=== PATIENT | female | born 1995 | race Caucasian/White ===

== ENCOUNTER 2017-11-01 13:49 | Emergency (ER) | payer BC ==
[~2017-11-01] VITALS: Ht 170.2 cm; Wt 117.9 kg
[~2017-11-01 13:49] MED LIST: ALBUTEROL INHAL17 GM IH; ALLEGRA30 MG; AZITHROMYCIN 2250 MG PO; BUTALB-APAP-CA1 EACH PO; FLONASE 0.05%50 MCG; FLOVENT HFA 1110 MCG; HYDROCODON-ACE1 EAC7 PO; NAPROSYN500 MG PO; PATANASE30.5 GM; PREDNISONE 20 M20 MG PO; PRINIVIL20 M1; PROPRANOLOL 1010 MG PO; SINGULAIR; TESSALON PERLE100 MG PO; ZOFRAN ODT4 MG PO
[2017-11-01] MEDS ORDERED: PROAIR HFA8.5 GM (14:00)
[2017-11-01] MEDS ORDERED: CARVEDILOL3.125 MG PO (14:00)
[2017-11-01 14:18] VITALS: BP 173/90
--- NOTE | 2017-11-02 10:26 | EKG ---
[place] [address] ELECTROCARDIOGRAM REPORT Name: TALIB TOVAR [id number] Admission: 11/01/17 Attend Phys: Discharge: 11/01/17 Date of : [birth year] Report #: [id number] THIS REPORT FOR: //name// [facility] ED Test Date: 2017-11-01 Test Time: 13:56:06 Pat Name: TALIB TOVAR Department: Room: Gender: F Supervisor Frame Assembly: SYLVIA : 1995 Requested By: Michael Bland Order Number: [id number] MD: Alex Knott Measurements Intervals [place] Rate: 100 P: 40 WA: 127 QRS: 42 QRSD: 102 T: -24 QT: 341 QTc: 440 Interpretive Statements Sinus tachycardia Borderline T abnormalities, inferior leads Compared to ECG 03/25/2017 17:35:55 rate slowed Electronically Signed On 11-02-2017 10:25:55 CDT by Alex Knott [email or web address] <ELECTRONICALLY SIGNED> By: Alex Knott MD, [facility] 11/02/17 1025 1356 1356 Alex Knott MD, FACC /EPI
== END 2017-11-01 14:19 | disposition home or self-care (01) ==
LOC: M.ERS 13:49
DX: R07.89 Other chest pain (principal); I10 Essential (primary) hypertension; J45.909 Unspecified asthma, uncomplicated; M41.9 Scoliosis, unspecified; Z88.6 Allergy status to analgesic agent

== ENCOUNTER 2018-01-11 13:15 | Emergency (ER) | payer BC ==
[~2018-01-11] VITALS: Ht 170.2 cm; Wt 117.9 kg
[~2018-01-11 13:15] MED LIST changes: +CARVEDILOL3.125 MG PO; +PROAIR HFA8.5 GM
[2018-01-11] MEDS ORDERED: VENTOLIN HFA 1818 GM INH (13:32)
[2018-01-11 13:58] LABS: URINE BILIRUBIN NEGATIVE (Negative); URINE BLOOD NEGATIVE (Negative); URINE CLARITY CLEAR; URINE COLOR YELLOW; URINE GLUCOSE-RANDOM NEGATIVE (Negative); URINE KETONES NEGATIVE (Negative); URINE LEUKOCYTES-REFLEX TRACE (Negative); URINE NITRITE-REFLEX NEGATIVE (Negative); URINE PROTEIN NEGATIVE (Negative); URINE SPECIFIC GRAVITY 1.015 (1.005-1.030); URINE UROBILINOGEN 0.2 E.U./dl (0.2-1.0)
[2018-01-11 14:09] LABS: ABSOLUTE BASOPHILS 0.1 thou/uL (0.0-0.2); ABSOLUTE EOSINOPHILS 0.2 thou/uL (0.0-0.7); ABSOLUTE LYMPHOCYTES 1.6 thou/uL (0.8-5.3); ABSOLUTE MONOCYTES 0.7 thou/uL (0.0-1.2); ABSOLUTE NEUTROPHILS 8.9 thou/uL (1.6-8.1); BASOPHILS 0.9 %; EOSINOPHILS 2.1 %; HEMATOCRIT 43.6 % (37.0-47.0); HEMOGLOBIN 14.4 gm/dL (12.0-15.0); LYMPHOCYTES 13.8 %; MCH 27.8 pg (26.0-34.0); MCV 84.2 fL (80.0-100.0); MONOCYTES 6.2 %; MPV 7.7 fl. (7.2-11.1); NUCLEATED RBCS 0 /100WBC; PLATELET COUNT* 339 thou/uL (150-400); RBC 5.18 mil/uL (4.20-5.00); RDW-CV 13.8 % (10.5-14.5); WBC 11.5 thou/uL (4.0-11.0)
[2018-01-11 14:12] LABS: BACTERIA-REFLEX 1-9 Few /HPF (None Seen); CASTS None Seen /LPF (None Seen); CRYSTALS None Seen /LPF (None Seen); SQUAMOUS 4-10 Moderate /LPF (0-3); URINE RBC 0-2 Rare /HPF (0-2); URINE WBC-REFLEX 0-5 Rare /HPF (0-5)
[2018-01-11 14:15] LABS: APTT 32.9 Seconds (25.0-31.3); PROTIME 10.2 Seconds (9.20-11.50)
[2018-01-11 14:16] LABS: ANION GAP 10 mmol/L (7-16); BUN 12 mg/dL (7-18); CALCIUM 10.4 mg/dL (8.5-10.1); CHLORIDE 104 mmol/L (98-107); CO2 24 mmol/L (21-32); CREATININE 0.7 mg/dL (0.6-1.3); GLUCOSE 144 mg/dL (70-99); POTASSIUM 3.7 mmol/L (3.5-5.1); SODIUM 138 mmol/L (136-145)
[2018-01-11 14:33] LABS: ALBUMIN 4.2 g/dL (3.4-5.0); ALKALINE PHOSPHATASE 54 U/L (46-116); CK-MB MASS 0.6 ng/mL (<0.5-3.6); NT-PRO BRAIN NAT PEPTIDE < 5 pg/mL (<300); SGOT 13 U/L (15-37); SGPT 24 U/L (30-65); TOTAL BILIRUBIN 1.1 mg/dL (<0.1-1.0); TOTAL PROTEIN 7.8 g/dL (6.4-8.2); TROPONIN-I LEVEL <0.06 ng/mL (<0.06)
--- NOTE | 2018-01-11 14:57 | EKG ---
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: Jaspal SHORT : 1995 Requested By: Michael Bland Order Number: [id number] MD: Alex Knott Measurements Intervals [place] Rate: 105 P: 43 IA: 116 QRS: 40 QRSD: 92 T: -12 QT: 329 QTc: 435 Interpretive Statements Sinus tachycardia Borderline T abnormalities, diffuse leads Baseline wander in lead(s) V3,V4,V5 Compared to ECG 11/01/2017 13:56:06 No significant changes Electronically Signed On 01-11-2018 14:57:08 CDT by Alex Knott [email or web address] <ELECTRONICALLY SIGNED> By: Alex Knott MD, [facility] 01/11/18 [facility]7 1329 1329 Alex Knott MD, [facility] /EPI
[2018-01-11 15:18] VITALS: BP 130/90
== END 2018-01-11 15:19 | disposition home or self-care (01) ==
LOC: M.ERS 13:15
PROVIDERS: Family Medicine
DX: R07.89 Other chest pain (principal); I10 Essential (primary) hypertension; J45.909 Unspecified asthma, uncomplicated; M41.9 Scoliosis, unspecified; Z88.5 Allergy status to narcotic agent

== ENCOUNTER 2018-10-15 11:19 | Emergency (ER) | payer BC ==
[~2018-10-15] VITALS: Ht 167.6 cm; Wt 119.8 kg
[~2018-10-15 11:19] MED LIST changes: +VENTOLIN HFA 1818 GM INH
[2018-10-15] MEDS ORDERED: INDOMETHACIN 5050 M1 (11:27)
[2018-10-15 12:07] LABS: ABSOLUTE BASOPHILS 0.1 thou/uL (0.0-0.2); ABSOLUTE EOSINOPHILS 0.2 thou/uL (0.0-0.7); ABSOLUTE MONOCYTES 0.6 thou/uL (0.0-1.2); ABSOLUTE NEUTROPHILS 5.1 thou/uL (1.6-8.1); BASOPHILS 1.1 %; EOSINOPHILS 2.6 %; HEMATOCRIT 41.8 % (37.0-47.0); HEMOGLOBIN 13.9 gm/dL (12.0-15.0); LYMPHOCYTES 24.7 %; MCH 27.7 pg (26.0-34.0); MCHC 33.3 g/dL (28.0-37.0); MCV 83.3 fL (80.0-100.0); MONOCYTES 7.3 %; NUCLEATED RBCS 0 /100WBC; PLATELET COUNT* 332 thou/uL (150-400); POLYS 64.3 %; RBC 5.02 mil/uL (4.20-5.00); RDW-CV 13.7 % (10.5-14.5)
[2018-10-15 12:13] LABS: ANION GAP 11 mmol/L (7-16); BUN 9 mg/dL (7-18); CALCIUM 10.4 mg/dL (8.5-10.1); CHLORIDE 106 mmol/L (98-107); CO2 24 mmol/L (21-32); CREATININE 0.7 mg/dL (0.6-1.3); GLUCOSE 99 mg/dL (70-99); POTASSIUM 4.1 mmol/L (3.5-5.1); SODIUM 141 mmol/L (136-145)
[2018-10-15 12:22] LABS: ALBUMIN 4.2 g/dL (3.4-5.0); ALKALINE PHOSPHATASE 53 U/L (46-116); LIPASE 84 U/L (73-393); MAGNESIUM 2.1 mg/dL (1.8-2.4); SGOT 13 U/L (15-37); SGPT 29 U/L (30-65); TOTAL PROTEIN 7.6 g/dL (6.4-8.2); TROPONIN-I LEVEL <0.06 ng/mL (<0.06)
[2018-10-15] MEDS ORDERED: FLEXERIL PO ×6 (13:11→13:34)
[2018-10-15] MEDS ORDERED: NORCO 5-325 TA1 EAC1 PO ×5 (13:11→13:29)
[2018-10-15 13:37] VITALS: BP 119/71
--- NOTE | 2018-10-15 16:00 | EKG ---
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 10/15/18 1600 1123 1123 Alex Knott MD, [facility] /EPI
== END 2018-10-15 13:37 | disposition home or self-care (01) ==
LOC: M.ERS 11:19
PROVIDERS: Emergency Medicine Emergency Medical Services
DX: M94.0 Chondrocostal junction syndrome [Tietze] (principal); I10 Essential (primary) hypertension; J45.909 Unspecified asthma, uncomplicated; M41.9 Scoliosis, unspecified; Z90.89 Acquired absence of other organs; Z88.5 Allergy status to narcotic agent

== ENCOUNTER 2019-06-10 15:57 | Emergency (ER) | payer BC ==
[~2019-06-10] VITALS: Ht 170.2 cm
[~2019-06-10 15:57] MED LIST changes: +FLEXERIL PO; +INDOMETHACIN 5050 M1; +NORCO 5-325 TA1 EAC1 PO
[2019-06-10] MEDS ORDERED: BLISOVI 24 FE1 EACH PO (16:17)
[2019-06-10 17:28] LABS: ABSOLUTE BASOPHILS 0.1 thou/uL (0.0-0.2); ABSOLUTE EOSINOPHILS 0.3 thou/uL (0.0-0.7); ABSOLUTE LYMPHOCYTES 3.3 thou/uL (0.8-5.3); ABSOLUTE MONOCYTES 0.7 thou/uL (0.0-1.2); ABSOLUTE NEUTROPHILS 6.5 thou/uL (1.6-8.1); BASOPHILS 0.7 %; EOSINOPHILS 2.4 %; HEMATOCRIT 46.2 % (37.0-47.0); HEMOGLOBIN 14.7 gm/dL (12.0-15.0); LYMPHOCYTES 30.4 %; MCH 28.6 pg (26.0-34.0); MCHC 31.8 g/dL (28.0-37.0); MONOCYTES 6.3 %; MPV 7.6 fl. (7.2-11.1); NUCLEATED RBCS 0 /100WBC; PLATELET COUNT* 338 thou/uL (150-400); POLYS 60.2 %; RBC 5.13 mil/uL (4.20-5.00); RDW-CV 15.3 % (10.5-14.5); WBC 10.7 thou/uL (4.0-11.0)
[2019-06-10 17:36] LABS: CALCIUM 10.5 mg/dL (8.5-10.1); CREATININE 0.6 mg/dL (0.6-1.3); POTASSIUM 4.4 mmol/L (3.5-5.1)
[2019-06-10 17:41] LABS: ALBUMIN 4.3 g/dL (3.4-5.0); TOTAL BILIRUBIN 1.1 mg/dL (<0.1-1.0); TOTAL PROTEIN 8.1 g/dL (6.4-8.2)
[2019-06-10 19:06] LABS: URINE BILIRUBIN NEGATIVE (Negative); URINE BLOOD 1+ (Negative); URINE CLARITY CLEAR; URINE COLOR YELLOW; URINE GLUCOSE-RANDOM NEGATIVE (Negative); URINE KETONES NEGATIVE (Negative); URINE LEUKOCYTES-REFLEX NEGATIVE (Negative); URINE NITRITE-REFLEX NEGATIVE (Negative); URINE PROTEIN NEGATIVE (Negative); URINE UROBILINOGEN 0.2 E.U./dl (0.2-1.0)
[2019-06-10 19:18] LABS: SQUAMOUS >10 Many /LPF (0-3)
[2019-06-10 19:19] LABS: AMORPHOUS URATES Few /LPF (None Seen); BACTERIA-REFLEX None Seen /HPF (None Seen); CASTS None Seen /LPF (None Seen); URINE RBC 3-10 Few /HPF (0-2); URINE WBC-REFLEX None Seen /HPF (0-5)
[2019-06-10 19:42] VITALS: BP 168/84
--- NOTE | 2019-06-13 16:22 | EKG ---
[place] [address] ELECTROCARDIOGRAM REPORT Name: TALIB TOVAR Room: [facility]#: [id number] Admission: 06/10/19 Attend Phys: Discharge: 06/10/19 Date of : [birth year] Date of Service: 06/10/19 1616 Report #: [id number] THIS REPORT FOR: //name// [facility] ED Test Date: 2019-06-10 Test Time: 16:16:05 Pat Name: TALIB TOVAR Department: Room: Gender: F Gambreler: : 1995 Requested By: Marilyn Meier Order Number: [id number] MD: Bang Hwang Measurements Intervals [place] Rate: 87 P: 37 [place]: 131 QRS: 22 QRSD: 92 T: 2 QT: 359 QTc: 432 Interpretive Statements Sinus rhythm Baseline wander in lead(s) V4,V5 Compared to ECG 10/15/2018 11:23:02 T-wave abnormality no longer present Electronically Signed On 06-13-2019 16:21:18 CDT by Bang Hwang [email or web address] <ELECTRONICALLY SIGNED> By: Bang Hwang MD, FACC 06/13/19 1621 1616 1616 Bang Hwang MD, [facility] /EPI
== END 2019-06-10 19:45 | disposition home or self-care (01) ==
LOC: M.ERS 15:57
PROVIDERS: Nurse Practitioner Family
DX: R42 Dizziness and giddiness (principal); R07.89 Other chest pain; I10 Essential (primary) hypertension; J45.909 Unspecified asthma, uncomplicated; Z88.5 Allergy status to narcotic agent; Z90.89 Acquired absence of other organs; M41.9 Scoliosis, unspecified

== ENCOUNTER 2020-04-05 12:00 | Emergency (ER) | payer BC ==
[~2020-04-05] VITALS: Ht 167.6 cm; Wt 108.9 kg
[~2020-04-05 12:00] MED LIST changes: +BLISOVI 24 FE1 EACH PO
[2020-04-05] MEDS ORDERED: BENICAR20 MG PO (12:07)
[2020-04-05 12:31] LABS: ABSOLUTE BASOPHILS 0.1 thou/uL (0.0-0.2); ABSOLUTE EOSINOPHILS 0.2 thou/uL (0.0-0.7); ABSOLUTE LYMPHOCYTES 2.3 thou/uL (0.8-5.3); ABSOLUTE MONOCYTES 0.6 thou/uL (0.0-1.2); ABSOLUTE NEUTROPHILS 4.2 thou/uL (1.6-8.1); BASOPHILS 1.3 %; EOSINOPHILS 2.7 %; HEMATOCRIT 43.3 % (37.0-47.0); HEMOGLOBIN 14.3 gm/dL (12.0-15.0); LYMPHOCYTES 30.8 %; MCH 28.6 pg (26.0-34.0); MCHC 33.1 g/dL (28.0-37.0); MCV 86.5 fL (80.0-100.0); MONOCYTES 8.2 %; MPV 7.3 fl. (7.2-11.1); NUCLEATED RBCS 0 /100WBC; PLATELET COUNT* 351 thou/uL (150-400); WBC 7.4 thou/uL (4.0-11.0)
[2020-04-05 12:41] LABS: CALCIUM 10.4 mg/dL (8.5-10.1); CREATININE 0.8 mg/dL (0.6-1.3)
[2020-04-05 12:51] LABS: ALBUMIN 4.4 g/dL (3.4-5.0); MAGNESIUM 2.2 mg/dL (1.8-2.4); TOTAL BILIRUBIN 0.5 mg/dL (<0.1-1.0); TOTAL PROTEIN 7.9 g/dL (6.4-8.2)
[2020-04-05] MEDS ORDERED: IBUPROFEN 800800 M1 PO (13:35)
[2020-04-05] MEDS ORDERED: FLEXERIL PO (13:35)
[2020-04-05 13:50] VITALS: BP 149/92
--- NOTE | 2020-04-05 16:28 | EKG ---
[place] [address] ELECTROCARDIOGRAM REPORT Name: TALIB TOVAR Room: [facility]#: [id number] Admission: 04/05/20 Attend Phys: Discharge: 04/05/20 Date of : [birth year] Date of Service: 04/05/20 1209 Report #: [id number] THIS REPORT FOR: //name// 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: [facility] : 1995 Requested By: Federico Fontenot Order Number: [id number] MD: Bang Hwang Measurements Intervals [place] Rate: 118 P: 49 MA: 127 QRS: 42 QRSD: 100 T: -43 QT: 333 QTc: 467 Interpretive Statements Sinus tachycardia Nonspecific ST segment depression Compared to ECG 06/10/2019 16:16:05 Sinus rhythm no longer present Electronically Signed On 04-05-2020 16:28:12 DOUBLE ENDING MACHINE OPERATOR by Bang Hwang [email or web address] <ELECTRONICALLY SIGNED> By: Bang Hwang MD, FACC 04/05/20 1628 1209 1209 Bang Hwang MD, FACC /EPI
== END 2020-04-05 13:52 | disposition home or self-care (01) ==
LOC: M.ERS 12:00
PROVIDERS: Emergency Medicine Emergency Medical Services
DX: R09.1 Pleurisy (principal); I10 Essential (primary) hypertension; J45.909 Unspecified asthma, uncomplicated; Z90.89 Acquired absence of other organs; Z96.22 Myringotomy tube(s) status; Z79.899 Other long term (current) drug therapy; Z88.5 Allergy status to narcotic agent

== ENCOUNTER 2020-05-23 16:18 | Emergency (ER) | payer BC ==
[~2020-05-23] VITALS: Ht 165.1 cm; Wt 99.8 kg
[~2020-05-23 16:18] MED LIST changes: +BENICAR20 MG PO; +IBUPROFEN 800800 M1 PO
[2020-05-23] MEDS ORDERED: BENICAR40 MG PO (16:34)
[2020-05-23] MEDS ORDERED: VENTOLIN HFA 1818 GM INH (16:35)
[2020-05-23] MEDS ORDERED: SINGULAIR 4 MG C4 M1 PO (16:35)
[2020-05-23] MEDS ORDERED: BIRTH CONTROL (16:35)
[2020-05-23 17:08] LABS: ABSOLUTE BASOPHILS 0.1 thou/uL (0.0-0.2); ABSOLUTE EOSINOPHILS 0.2 thou/uL (0.0-0.7); ABSOLUTE LYMPHOCYTES 2.5 thou/uL (0.8-5.3); ABSOLUTE MONOCYTES 0.7 thou/uL (0.0-1.2); ABSOLUTE NEUTROPHILS 5.2 thou/uL (1.6-8.1); BASOPHILS 0.7 %; EOSINOPHILS 2.1 %; HEMATOCRIT 42.1 % (37.0-47.0); HEMOGLOBIN 14.1 gm/dL (12.0-15.0); LYMPHOCYTES 29.4 %; MCH 28.8 pg (26.0-34.0); MCHC 33.5 g/dL (28.0-37.0); MONOCYTES 7.7 %; MPV 7.4 fl. (7.2-11.1); NUCLEATED RBCS 0 /100WBC; PLATELET COUNT* 314 thou/uL (150-400); POLYS 60.1 %; RDW-CV 12.8 % (10.5-14.5); WBC 8.7 thou/uL (4.0-11.0)
[2020-05-23 17:17] LABS: ANION GAP 14 mmol/L (7-16); BUN 12 mg/dL (7-18); CALCIUM 10.2 mg/dL (8.5-10.1); CHLORIDE 101 mmol/L (98-107); CO2 22 mmol/L (21-32); CREATININE 0.8 mg/dL (0.6-1.3); GLUCOSE 103 mg/dL (70-99); POTASSIUM 3.5 mmol/L (3.5-5.1); SODIUM 137 mmol/L (136-145)
[2020-05-23 17:28] LABS: ALBUMIN 4.3 g/dL (3.4-5.0); ALKALINE PHOSPHATASE 42 U/L (46-116); NT-PRO BRAIN NAT PEPTIDE < 5 pg/mL (<300); SGOT 22 U/L (15-37); SGPT 43 U/L (30-65); TOTAL BILIRUBIN 0.8 mg/dL (<0.1-1.0); TOTAL PROTEIN 7.2 g/dL (6.4-8.2)
[2020-05-23] MEDS ORDERED: TRANSDERM-SCOP1 EACH TRANSDERM (17:38)
[2020-05-23] MEDS ORDERED: MECLIZINE HCL25 MG PO (17:38)
[2020-05-23 18:01] VITALS: BP 163/95
--- NOTE | 2020-05-24 10:13 | EKG ---
[place] [address] ELECTROCARDIOGRAM REPORT Name: TALIB TOVAR Room: [facility]#: [id number] Admission: 05/23/20 Attend Phys: Discharge: 05/23/20 Date of : [birth year] Date of Service: 05/23/20 1645 Report #: [id number] THIS REPORT FOR: //name// [facility] ED Test Date: 2020-05-23 Test Time: 16:45:13 Pat Name: TALIB TOVAR Department: Room: Gender: F Manager Intranet: gabriel : 1995 Requested By: Mckenna Handley Order Number: [id number] MD: Alex Knott Measurements Intervals [place] Rate: 102 P: 5 SD: 156 QRS: 36 QRSD: 99 T: -26 QT: 336 QTc: 438 Interpretive Statements Sinus tachycardia Borderline T abnormalities, inferior leads Compared to ECG 04/05/2020 12:09:53 no change Electronically Signed On 05-24-2020 10:13:15 STEAM TRAP WORKER by Alex Knott [email or web address] <ELECTRONICALLY SIGNED> By: Alex Knott MD, [facility] 05/24/20 1013 1645 1645 Alex Knott MD, [facility] /EPI
== END 2020-05-23 18:02 | disposition home or self-care (01) ==
LOC: M.ERS 16:18
PROVIDERS: Nurse Practitioner Family
DX: H81.10 Benign paroxysmal vertigo, unspecified ear (principal); I10 Essential (primary) hypertension; J45.909 Unspecified asthma, uncomplicated; M41.9 Scoliosis, unspecified; Z88.5 Allergy status to narcotic agent; Z90.89 Acquired absence of other organs

== ENCOUNTER 2020-06-30 10:02 | Emergency (ER) | payer BC ==
[~2020-06-30] VITALS: Ht 170.2 cm; Wt 108.9 kg
[~2020-06-30 10:02] MED LIST changes: +BENICAR40 MG PO; +BIRTH CONTROL; +MECLIZINE HCL25 MG PO; +SINGULAIR 4 MG C4 M1 PO; +TRANSDERM-SCOP1 EACH TRANSDERM
[2020-06-30] MEDS ORDERED: MICARDIS40 MG PO (10:14)
[2020-06-30 11:04] LABS: CALCIUM 10.3 mg/dL (8.5-10.1); CREATININE 0.7 mg/dL (0.6-1.3); POTASSIUM 3.8 mmol/L (3.5-5.1)
[2020-06-30 11:09] LABS: TOTAL BILIRUBIN 0.8 mg/dL (<0.1-1.0); TOTAL PROTEIN 7.6 g/dL (6.4-8.2)
[2020-06-30 11:48] LABS: ABSOLUTE BASOPHILS 0.1 thou/uL (0.0-0.2); ABSOLUTE EOSINOPHILS 0.1 thou/uL (0.0-0.7); ABSOLUTE LYMPHOCYTES 1.9 thou/uL (0.8-5.3); ABSOLUTE MONOCYTES 0.5 thou/uL (0.0-1.2); ABSOLUTE NEUTROPHILS 4.5 thou/uL (1.6-8.1); BASOPHILS 1.2 %; HEMATOCRIT 40.2 % (37.0-47.0); HEMOGLOBIN 13.5 gm/dL (12.0-15.0); LYMPHOCYTES 26.5 %; MCH 28.7 pg (26.0-34.0); MCHC 33.5 g/dL (28.0-37.0); MCV 85.8 fL (80.0-100.0); MONOCYTES 7.4 %; MPV 7.1 fl. (7.2-11.1); NUCLEATED RBCS 0 /100WBC; PLATELET COUNT* 305 thou/uL (150-400); POLYS 62.9 %; RBC 4.68 mil/uL (4.20-5.00); RDW-CV 12.8 % (10.5-14.5); WBC 7.2 thou/uL (4.0-11.0)
[2020-06-30] MEDS ORDERED: FLEXERIL PO (11:53)
[2020-06-30 12:00] VITALS: BP 143/75
--- NOTE | 2020-07-02 09:35 | EKG ---
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: CCD : 1995 Requested By: Federico Fontenot Order Number: [id number] MD: Alex Knott Measurements Intervals [place] Rate: 92 P: 31 FL: 128 QRS: 28 QRSD: 94 T: -5 QT: 359 QTc: 445 Interpretive Statements Sinus rhythm Borderline T abnormalities, inferior leads Compared to ECG 05/23/2020 16:45:13 Sinus tachycardia no longer present T-wave abnormality still present Electronically Signed On 07-02-2020 9:35:50 CDT by Alex Knott [email or web address] <ELECTRONICALLY SIGNED> By: Alex Knott MD, FAC 07/02/20 0935 1033 1033 Alex Knott MD, [facility] /EPI
== END 2020-06-30 12:00 | disposition home or self-care (01) ==
LOC: M.ERS 10:02
PROVIDERS: Emergency Medicine Emergency Medical Services
DX: R07.89 Other chest pain (principal); J45.909 Unspecified asthma, uncomplicated; I10 Essential (primary) hypertension; M41.9 Scoliosis, unspecified; Z90.89 Acquired absence of other organs; Z88.5 Allergy status to narcotic agent

== ENCOUNTER 2020-11-05 11:31 | Emergency (ER) | payer BC ==
[~2020-11-05] VITALS: Ht 170.2 cm; Wt 108.9 kg
[~2020-11-05 11:31] MED LIST changes: +MICARDIS40 MG PO
[2020-11-05 12:00] VITALS: BP 160/108
[2020-11-05] MEDS ORDERED: LORATIDINE 10 M10 M1 PO (12:03)
[2020-11-05 12:36] LABS: ABSOLUTE BASOPHILS 0.1 thou/uL (0.0-0.2); ABSOLUTE EOSINOPHILS 0.2 thou/uL (0.0-0.7); ABSOLUTE LYMPHOCYTES 2.5 thou/uL (0.8-5.3); ABSOLUTE MONOCYTES 0.6 thou/uL (0.0-1.2); ABSOLUTE NEUTROPHILS 6.7 thou/uL (1.6-8.1); BASOPHILS 0.8 %; EOSINOPHILS 1.8 %; HEMATOCRIT 41.9 % (37.0-47.0); HEMOGLOBIN 14.2 gm/dL (12.0-15.0); LYMPHOCYTES 24.9 %; MCHC 33.9 g/dL (28.0-37.0); MCV 85.6 fL (80.0-100.0); MONOCYTES 5.8 %; MPV 7.2 fl. (7.2-11.1); NUCLEATED RBCS 0 /100WBC; PLATELET COUNT* 348 thou/uL (150-400); POLYS 66.7 %; RDW-CV 12.8 % (10.5-14.5); WBC 10.1 thou/uL (4.0-11.0)
[2020-11-05 12:44] LABS: CALCIUM 9.7 mg/dL (8.5-10.1); CREATININE 0.7 mg/dL (0.6-1.3); POTASSIUM 3.9 mmol/L (3.5-5.1)
[2020-11-05 12:48] LABS: ALBUMIN 4.2 g/dL (3.4-5.0); TOTAL BILIRUBIN 0.7 mg/dL (<0.1-1.0); TOTAL PROTEIN 7.6 g/dL (6.4-8.2)
[2020-11-05] MEDS ORDERED: HYDROCODON-ACE1 EAC7 PO (14:20)
[2020-11-05] MEDS ORDERED: MOTION SICKNESS25 MG PO (14:20)
--- NOTE | 2020-11-05 16:03 | EKG ---
[place] [address] ELECTROCARDIOGRAM REPORT Name: TALIB TOVAR Room: 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 Analyst: : 1995 Requested By: Federico Fontenot Order Number: [id number] MD: Alex Knott Measurements Intervals [place] Rate: 93 P: 12 ND: 108 QRS: 31 QRSD: 94 T: -16 QT: 343 QTc: 427 Interpretive Statements Sinus rhythm Short [place] interval Borderline T abnormalities, inferior leads Compared to ECG 06/30/2020 10:33:24 T-wave abnormality still present Electronically Signed On 11-05-2020 16:03:39 CDT by Alex Knott [email or web address] <ELECTRONICALLY SIGNED> By: Alex Knott MD, [facility] 11/05/20 1603 1206 1206 Alex Knott MD, [facility] /EPI
== END 2020-11-05 14:40 | disposition home or self-care (01) ==
LOC: M.ERS 11:31
PROVIDERS: Emergency Medicine Emergency Medical Services
DX: M94.0 Chondrocostal junction syndrome [Tietze] (principal); H81.10 Benign paroxysmal vertigo, unspecified ear; I10 Essential (primary) hypertension; J45.909 Unspecified asthma, uncomplicated; M41.9 Scoliosis, unspecified; Z90.89 Acquired absence of other organs; Z88.5 Allergy status to narcotic agent

== ENCOUNTER 2021-04-02 09:33 | Emergency (ER) | payer BC ==
[~2021-04-02] VITALS: Ht 170.2 cm; Wt 113.4 kg
[~2021-04-02 09:33] MED LIST changes: +LORATIDINE 10 M10 M1 PO; +MOTION SICKNESS25 MG PO
[2021-04-02] MEDS ORDERED: LIPITOR10 MG PO (09:43)
[2021-04-02] MEDS ORDERED: SPIRONOLACTONE25 MG PO (09:43)
[2021-04-02 13:04] LABS: ABSOLUTE BASOPHILS 0.1 thou/uL (0.0-0.2); ABSOLUTE EOSINOPHILS 0.1 thou/uL (0.0-0.7); ABSOLUTE LYMPHOCYTES 1.7 thou/uL (0.8-5.3); ABSOLUTE MONOCYTES 0.4 thou/uL (0.0-1.2); BASOPHILS 0.7 %; EOSINOPHILS 1.3 %; HEMATOCRIT 40.5 % (37.0-47.0); HEMOGLOBIN 13.6 gm/dL (12.0-15.0); LYMPHOCYTES 20.1 %; MCH 28.4 pg (26.0-34.0); MCHC 33.6 g/dL (28.0-37.0); MCV 84.4 fL (80.0-100.0); MONOCYTES 5.4 %; MPV 7.4 fl. (7.2-11.1); NUCLEATED RBCS 0 /100WBC; PLATELET COUNT* 300 thou/uL (150-400); POLYS 72.5 %; RDW-CV 13.2 % (10.5-14.5); WBC 8.3 thou/uL (4.0-11.0)
[2021-04-02 13:17] LABS: CALCIUM 9.9 mg/dL (8.5-10.1); CREATININE 0.7 mg/dL (0.6-1.3); POTASSIUM 3.8 mmol/L (3.5-5.1)
[2021-04-02 13:21] LABS: MAGNESIUM 2.2 mg/dL (1.8-2.4); TOTAL PROTEIN 7.7 g/dL (6.4-8.2)
[2021-04-02] MEDS ORDERED: IBUPROFEN 800800 M1 PO (13:51)
[2021-04-02] MEDS ORDERED: FLEXERIL PO (13:51)
[2021-04-02 14:12] VITALS: BP 152/82
--- NOTE | 2021-04-02 15:41 | EKG ---
[place] [address] ELECTROCARDIOGRAM REPORT Name: LATALIB GANDARA Room: [facility]#: [id number] Admission: 04/02/21 Attend Phys: Discharge: 04/02/21 Date of : [birth year] Date of Service: 04/02/21 0943 Report #: [id number] THIS REPORT FOR: //name// [facility] ED Test Date: 2021-04-02 Test Time: 09:43:16 Pat Name: TALIB TOVAR Department: Room: Gender: F Hospitality Workers: LUCIA : 1995 Requested By: Federico Fontenot Order Number: [id number] MD: Chao Valenzuela Measurements Intervals [place] Rate: 83 P: 17 ME: 113 QRS: 47 QRSD: 100 T: 15 QT: 367 QTc: 432 Interpretive Statements Sinus rhythm Borderline short ME interval Minor nonspecific ST-T alterations Compared to ECG 11/05/2020 12:06:28 No significant interval change Electronically Signed On 04-02-2021 15:40:45 OUTPATIENT SURGERY RN by Chao Valenzuela [email or web address] <ELECTRONICALLY SIGNED> By: Chao Valenzuela MD, [facility] 04/02/21 1540 0943 0943 Chao Valenzuela MD, [facility] /EPI
== END 2021-04-02 14:15 | disposition home or self-care (01) ==
LOC: M.ERS 09:33
PROVIDERS: Emergency Medicine Emergency Medical Services
DX: R07.89 Other chest pain (principal); G56.01 Carpal tunnel syndrome, right upper limb; R06.02 Shortness of breath; I10 Essential (primary) hypertension; J45.909 Unspecified asthma, uncomplicated; M79.601 Pain in right arm; Z90.89 Acquired absence of other organs; Z79.899 Other long term (current) drug therapy; Z88.5 Allergy status to narcotic agent